=== PATIENT | male | born 1945 | race Caucasian/White ===

== ENCOUNTER 2016-09-28 11:57 | Emergency (ER) | payer MEDICARE ==
[2016-09-28 13:17] LABS: BASOPHILS 0.1 % (0-2); EOSINOPHILS 0.3 % (0-7); HEMATOCRIT 42.7 % (42.0-54.0); HEMOGLOBIN 14.1 g/dL (13.5-17.5); IMMATURE GRANULOCYTES 0.4 % (0-5); LYMPHOCYTES 7.4 % (15-50); MCH 32.9 pg (26.0-34.0); MCV 99.5 fL (80.0-100.0); MEAN PLATELET VOLUME 9.3 fL (7.4-10.4); MONOCYTES 7.1 % (2-11); NEUTROPHILS 84.7 % (40-80); PLATELET COUNT 194 10x3/uL (130-400); RBC 4.29 10x6/uL (4.20-6.10); WBC 16.4 10x3/uL (4.8-10.8)
[2016-09-28 13:35] LABS: ALBUMIN 3.7 g/dL (3.4-5.0); ANION GAP 8.3 mmol/L (8-16); BILIRUBIN - TOTAL 0.56 mg/dL (0.2-1.3); CALCIUM 9.2 mg/dL (8.5-10.1); CARBON DIOXIDE 33.2 mmol/L (21.0-32.0); CREATININE - SERUM 1.2 mg/dL (0.6-1.3); POTASSIUM - SERUM 3.5 mmol/L (3.5-5.1); PROTEIN - SERUM 7.1 g/dL (6.4-8.2)
== END 2016-09-28 14:30 | disposition home or self-care (01) ==
LOC: D.ER 11:57
PROVIDERS: Physician Assistant
DX: R06.00 Dyspnea, unspecified (principal)

== ENCOUNTER 2017-09-05 14:31 | Emergency (ER) | payer MEDICARE | END 2017-09-05 19:54 | disposition home or self-care (01) | LOC: D.ER 14:31 | DX: M54.16 Radiculopathy, lumbar region (principal); M51.36 Other intervertebral disc degeneration, lumbar region; J44.9 Chronic obstructive pulmonary disease, unspecified; J45.909 Unspecified asthma, uncomplicated ==